=== PATIENT | male | born 1990 | race Caucasian/White ===

== ENCOUNTER 2021-10-20 14:06 | Outpatient (CLI) | payer BC ==
--- NOTE | 2021-10-20 17:10 | XRAY Report ---
PROCEDURE: Foot 3 View RT INDICATIONS: R FOOT PX TECHNIQUE: 3 views of the foot were acquired. COMPARISON: None FINDINGS: Bones: No fractures or dislocations. No suspicious bony lesions. Small dorsal calcaneal bone spur. Mild tibiotalar midfoot osteoarthritis. Soft tissues: No tibiotalar joint effusion. Achilles tendon appears normal. IMPRESSION: Small calcaneal bone spur. Mild tibiotalar midfoot osteoarthritis. Reviewed by: Hailee Roca MD, PhD on 10/20/2021 5:08 PM PST Approved by: Hailee Roca MD, PhD on 10/20/2021 5:08 PM PST Station ID: [id number]
== END 2021-10-20 23:59 | disposition home or self-care (01) ==
LOC: DI.N 14:06
PROVIDERS: ATTEND Physician Assistant Medical
DX: M19.071 Primary osteoarthritis, right ankle and foot (principal); M77.31 Calcaneal spur, right foot

== ENCOUNTER 2023-06-16 07:17 | Outpatient (CLI) | payer BC ==
--- NOTE | 2023-06-16 09:53 | MRI Report ---
PROCEDURE: BRAIN W/WO INDICATIONS: NEW ONSET POTARY NYSTAGMUS CONTRAST: gadavist 7.3ml TECHNIQUE: Noncontrast axial T1 spin echo, axial T2 fast spin echo, sagittal and axial FLAIR, coronal T2 fast sp in echo, axial gradient echo, axial diffusion and ADC through the brain. After the administration of contrast, axial and coronal T1 spin echo with fat saturation through the brain. COMPARISON: None. FINDINGS: Image quality: Diagnostic, with note made of motion artifact. CSF spaces: Basal cisterns are patent. No extra-axial fluid collections. Ventricles are normal in size and shape. Brain: In this patient with this given history, scrutiny is given to masses involving the brainstem or the skull base. None can be seen. No abnormal enhancement can be seen within these regions. No ma sses or abnormal enhancement can be seen within the internal auditory canals or the cerebellopontine pontine angle cisterns, to the limits of this standard protocol study. No masses or abnormal enhancement can be seen elsewhere. No midline shift. No intracranial bleeds. There is cerebral volume loss for age. There is perivent ricular white matter chronic small vessel ischemic change. The brainstem appears normal. Diffusion- weighted images demonstrate no acute ischemic insults. No chronic ischemic insults. Normal intravas cular flow voids are present. Skull and face: Calvarial marrow is normal in signal. Orbits appear normal. Sinuses: Sinuses and mastoids appear clear. IMPRESSION: No imaging explanation is found for the patient's presenting symptoms. No masses or abnormal enhancement can be seen. Reviewed by: Lake Drummond MD on 06/16/2023 8:52 AM ANETTE Approved by: Lake Drummond MD on 06/16/2023 8:52 AM ANETTE Station ID: [id number]
== END 2023-06-16 07:18 | disposition home or self-care (01) ==
LOC: DI 07:17
PROVIDERS: ATTEND Ophthalmology
DX: H55.09 Other forms of nystagmus (principal)
CPT/HCPCS: 70553; A9585